=== PATIENT | female | born 1940 | race Caucasian/White ===

== ENCOUNTER → 2021-09-26 | Outpatient (CLI) | payer OTHER | LOC: M.RAD 12:17 | PROVIDERS: ATTEND Internal Medicine | DX: J01.01 Acute recurrent maxillary sinusitis (principal) ==

== ENCOUNTER → 2021-10-07 | Outpatient (CLI) | payer OTHER | LOC: M.MRI | PROVIDERS: ATTEND Otolaryngology | DX: S22.039A Unspecified fracture of third thoracic vertebra, initial encounter for closed fracture (principal); S22.049A Unspecified fracture of fourth thoracic vertebra, initial encounter for closed fracture; M47.812 Spondylosis without myelopathy or radiculopathy, cervical region; C41.0 Malignant neoplasm of bones of skull and face; M41.82 Other forms of scoliosis, cervical region; J32.2 Chronic ethmoidal sinusitis; J32.0 Chronic maxillary sinusitis; J32.3 Chronic sphenoidal sinusitis; X58.XXXA Exposure to other specified factors, initial encounter; Y93.89 Activity, other specified; Y92.89 Other specified places as the place of occurrence of the external cause; Y99.8 Other external cause status ==